=== PATIENT | male | born 1970 | race Caucasian/White ===

== ENCOUNTER 2020-04-10 11:27 | Emergency (ER) | payer BC, OTHER ==
[~2020-04-10] VITALS: Ht 182 cm; Wt 86.0 kg
[~2020-04-10 11:27] MED LIST: HYDR1TAB PO; ONDA-42 PO; TMSL.4C PO
[2020-04-10] MEDS ORDERED: KETOROLAC 30 MG/ML VIAL ONE (11:39)
[2020-04-10] MEDS ORDERED: LACTATED RINGERS 1,000 ML IV ONE (11:39)
[2020-04-10 11:48] LABS: BASOPHILS % (AUTO) 0 % (0-10); EOSINOPHILS # (AUTO) 0.1 10^3/uL (0.0-0.3); EOSINOPHILS % (AUTO) 1 % (0-10); HEMATOCRIT 43 % (40-54); HEMOGLOBIN 14.6 G/DL (13.3-17.7); LYMPHOCYTES # (AUTO) 1.9 X 10^3 (1.0-4.0); LYMPHOCYTES % (AUTO) 16 % (12-44); MEAN CORPUSCULAR HEMOGLOBIN 31 PG (25-34); MEAN CORPUSCULAR HGB CONC 34 G/DL (32-36); MEAN CORPUSCULAR VOLUME 90 FL (80-99); MEAN PLATELET VOLUME 10.7 FL (7.4-10.4); MONOCYTES # (AUTO) 0.7 X 10^3 (0.0-1.0); MONOCYTES % (AUTO) 6 % (0-12); NEUTROPHILS # (AUTO) 9.5 X 10^3 (1.8-7.8); NEUTROPHILS % (AUTO) 78 % (42-75); PLATELET COUNT 244 10^3/uL (130-400); RED CELL DISTRIBUTION WIDTH 13.1 % (10.0-14.5); WHITE BLOOD COUNT 12.2 10^3/uL (4.3-11.0)
--- NOTE | 2020-04-10 11:51 | ED Back Pain ---
General Stated Complaint: LOWER BACK PAIN Source of Information: Patient Exam Limitations: No Limitations History of Present Illness Date Seen by Provider: Apr 10, 2020 Time Seen by Provider: 11:47 Initial Comments To ER with sudden onset left low back pain that began yesterday. History of kidney stones several years ago and this feels similar. Location: Lumbar Spine Timing/Duration: 1-2 Days Severity: Moderate Pain/Injury Location: Back Associated Symptoms: lower back pain Allergies and Home Medications Allergies Coded Allergies: No Known Drug Allergies (Unverified , 06/04/11) Home Medications Amoxicillin/Potassium Clav 1 Each Tablet, 1 EACH PO BID Prescribed by: FARNAZ ROONEY on 04/10/20 1208 Hydrocodone Bit/Acetaminophen 1 Each Tablet, 1-2 EACH PO Q4H PRN Prescribed by: PAULIE KRAMER on 06/04/11437 Hydrocodone/Acetaminophen 1 Each Tablet, 1 EACH PO Q4-6HR PRN for PAIN-MODERATE Prescribed by: FARNAZ ROONEY on 04/10/20 1209 Ondansetron 8 Mg Tab.rapdis, 8 MG PO Q6H PRN for NAUSEA/VOMITING Prescribed by: FARNAZ ROONEY on 04/10/20 120 Ondansetron Hcl 4 Mg Tab, 4 MG PO Q4H PRN Prescribed by: PAULIE KRAMER on 06/04/11437 Tamsulosin Hcl 0.4 Mg Cap, 0.4 MG PO DAILY Prescribed by: PAULIE KRAMER on 06/04/11437 Patient Home Medication List Home Medication List Reviewed: Yes Review of Systems Constitutional: see HPI; No chills, No fever EENTM: see HPI Respiratory: no symptoms reported Cardiovascular: no symptoms reported Genitourinary: no symptoms reported Musculoskeletal: see HPI, back pain Skin: no symptoms reported Past Fkjpxbk-Cwqwwt-Tcfuiv Hx Patient Social History Recent Foreign Travel: No Contact w/Someone Who Travel: No Physical Exam Vital Signs Vital Signs - First Documented 04/10/20 11:35 Temp 37.0 Pulse 95 Resp 18 B/P (MAP) 145/89 (107) Pulse Ox 97 Capillary Refill : Height, Weight, BMI Height: '" Weight: lbs. oz. kg; BMI Method: General Appearance: No Apparent Distress, WD/WN, Other (rates pain 5 out of 10) Neck: Full Range of Motion, Normal Inspection Respiratory: No Accessory Muscle Use, No Respiratory Distress Gastrointestinal: Normal Bowel Sounds, Non Tender, Soft Extremity: Normal Capillary Refill, Normal Inspection Neurologic/Psychiatric: Alert, Oriented x3 Skin: Normal Color, Warm/Dry Progress/Results/Core Measures Results/Orders Lab Results Laboratory Tests Test 04/10/20 11:37 Range/Units White Blood Count 12.2 H 4.3-11.0 10^3/uL Red Blood Count 4.78 4.35-5.85 10^6/uL Hemoglobin 14.6 13.3-17.7 G/DL Hematocrit 43 40-54 % Mean Corpuscular Volume 90 80-99 FL Mean Corpuscular Hemoglobin 31 25-34 PG Mean Corpuscular Hemoglobin Concent 34 32-36 G/DL Red Cell Distribution Width 13.1 10.0-14.5 % Platelet Count 244 130-400 10^3/uL Mean Platelet Volume 10.7 H 7.4-10.4 FL Neutrophils (%) (Auto) 78 H 42-75 % Lymphocytes (%) (Auto) 16 12-44 % Monocytes (%) (Auto) 6 0-12 % Eosinophils (%) (Auto) 1 0-10 % Basophils (%) (Auto) 0 0-10 % Neutrophils # (Auto) 9.5 H 1.8-7.8 X 10^3 Lymphocytes # (Auto) 1.9 1.0-4.0 X 10^3 Monocytes # (Auto) 0.7 0.0-1.0 X 10^3 Eosinophils # (Auto) 0.1 0.0-0.3 10^3/uL Basophils # (Auto) 0.0 0.0-0.1 10^3/uL Sodium Level 139 135-145 MMOL/L Potassium Level 4.3 3.6-5.0 MMOL/L Chloride Level 110 H 98-107 MMOL/L Carbon Dioxide Level 18 L 21-32 MMOL/L Anion Gap 11 5-14 MMOL/L Blood Urea Nitrogen 11 7-18 MG/DL Creatinine 1.05 0.60-1.30 MG/DL Estimat Glomerular Filtration Rate > 60 BUN/Creatinine Ratio 10 Glucose Level 141 H 70-105 MG/DL Calcium Level 9.2 8.5-10.1 MG/DL Corrected Calcium 9.0 8.5-10.1 MG/DL Total Bilirubin 0.4 0.1-1.0 MG/DL Aspartate Amino Transf (AST/SGOT) 22 5-34 U/L Alanine Aminotransferase (ALT/SGPT) 23 0-55 U/L Alkaline Phosphatase 70 40-136 U/L Total Protein 7.8 6.4-8.2 GM/DL Albumin 4.3 3.2-4.5 GM/DL My Orders Orders - FARNAZ ROONEY APRN Cbc With Automated Diff (04/10/20 11:42) Comprehensive Metabolic Panel (04/10/20 11:42) Ct Abd/Pelvis Wo(Kidney Stone) (04/10/20 11:42) Abdomen/Kub 1view (04/10/20 11:42) Ed Iv/Invasive Line Start (04/10/20 11:42) Ua Culture If Indicated (04/10/20 11:42) Ketorolac Injection (Toradol Injection) (04/10/20 11:39) Lactated Ringers (Lr 1000 Ml Iv Solution (04/10/20 11:39) Medications Given in ED Current Medications Medications Dose Ordered Sig/Scarlet Route Start Time Stop Time Status Last Admin Dose Admin Ketorolac Tromethamine 30 mg STK-MED ONCE .ROUTE 04/10/20 11:39 04/10/20 11:43 DC 04/10/20 11:40 30 MG Lactated Ringer's 1,000 ml @ ud STK-MED ONCE IV 04/10/20 11:39 04/10/20 11:43 DC 04/10/20 11:40 1,000 MLS/HR Vital Signs/I&O 04/10/20 11:35 Temp 37.0 Pulse 95 Resp 18 B/P (MAP) 145/89 (107) Pulse Ox 97 Departure Communication (Admissions) MIKI: JANE BAJWA MED REC#: [id number] PT STATUS: REG ER : 1970 PHYSICIAN: FARNAZ ROONEY APRN ADMIT DATE: 04/10/20/ER Draft Date of Exam:04/10/20 CT ABD/PELVIS WO(KIDNEY STONE) PROCEDURE: CT urinary tract, rule out kidney stone. TECHNIQUE: Multiple contiguous axial images were obtained through the abdomen and pelvis without the use of intravenous contrast. Auto Exposure Controls were utilized during the CT exam to meet ALARA standards for radiation dose reduction. INDICATION: Left flank pain. COMPARISON: 06/04/2011 FINDINGS: Included portions lung bases are clear. CT ABDOMEN: There is colonic diverticulosis. Note is also made of focal stranding of the pericolonic fat surrounding a diverticulum of the proximal descending colon (image 48, series 2). There is perhaps trace free fluid within the upper left colic gutter as well. There is no loculated air-fluid collection, pneumatosis, pneumoperitoneum, nor portal venous gas. Proximal large and small bowel loops are nondistended. Normal appendix is identified. Punctate nonobstructive bilateral renal calculi are noted. No calculi are seen within either ureter. Additionally, there is no hydronephrosis or other evidence of obstruction. Adrenal glands, spleen, pancreas, and liver have an unremarkable noncontrast CT appearance. There is no abnormal mesenteric or retroperitoneal adenopathy. Osseous structures show no acute abnormalities CT PELVIS: Urinary bladder is opacified. No calculi are seen within urinary bladder. There is no loculated fluid collection, free fluid, no free air within the pelvis. No abnormal lymph nodes are seen. Osseous structures show no acute abnormalities IMPRESSION: 1. Colonic diverticulosis with probable acute diverticulitis of the proximal descending colon. 2. Trace free fluid within the upper left paracolic gutter, but no evidence of abscess or free air. 3. Bilateral punctate nonobstructive renal calculi. Dictated on workstation # [id number] Dict: 04/10/20 1210 Trans: 04/10/20 1220 [facility] [id number] Interpreted by: HEATHER BRENNAN MD Electronically signed by: Impression Primary Impression: Diverticulitis Disposition: 01 HOME, SELF-CARE Condition: Improved Departure-Patient Inst. Decision time for Depature: 11:58 Referrals: NO,LOCAL PHYSICIAN (PCP/Family) Primary Care Physician Patient Instructions: Diverticulitis (DC) Add. Discharge Instructions: 1. Clear liquids for the next 24 hours. Antibiotics and pain medication as directed. Return to ER for any uncontrollable nausea vomiting fevers or worsening pain. Scripts Hydrocodone/Acetaminophen (Lorcet 5-325 mg Tablet) 1 Each Tablet 1 EACH PO Q4-6HR PRN for PAIN-MODERATE MDD 10 for 7 Days, #10 TAB Prov: FARNAZ ROONEY [employer] 04/10/20 Ondansetron (Ondansetron Odt) 8 Mg Tab.rapdis 8 MG PO Q6H PRN for NAUSEA/VOMITING, #10 TAB Prov: FARNAZ ROONEY APRN 04/10/20 Amoxicillin/Potassium Clav (Augmentin 875-125 Tablet) 1 Each Tablet 1 EACH PO BID, #14 TAB 0 Refills Prov: FARNAZ ROONEY APRN 04/10/20 FARNAZ ROONEY APRN Apr 10, 2020 11:51
[2020-04-10 12:00] LABS: ALBUMIN 4.3 GM/DL (3.2-4.5)
[2020-04-10 12:01] LABS: CHLORIDE 110 MMOL/L (98-107); POTASSIUM 4.3 MMOL/L (3.6-5.0); SODIUM 139 MMOL/L (135-145)
[2020-04-10 12:02] LABS: CALCIUM 9.2 MG/DL (8.5-10.1)
[2020-04-10 12:03] LABS: GLUCOSE 141 MG/DL (70-105); TOTAL PROTEIN 7.8 GM/DL (6.4-8.2)
[2020-04-10 12:04] LABS: CARBON DIOXIDE 18 MMOL/L (21-32)
[2020-04-10 12:05] LABS: BILIRUBIN,TOTAL 0.4 MG/DL (0.1-1.0)
[2020-04-10 12:06] LABS: ALKALINE PHOSPHATASE 70 U/L (40-136)
[2020-04-10 12:07] LABS: CREATININE SERUM 1.05 MG/DL (0.60-1.30); GFR ESTIMATED > 60
[2020-04-10 12:08] LABS: BUN/CREATININE RATIO 10
[2020-04-10] MEDS ORDERED: AMOX-358 PO (12:08)
[2020-04-10] MEDS ORDERED: ONDA8TAB13 PO (12:08)
[2020-04-10] MEDS ORDERED: HYDR-3870 PO (12:08)
[2020-04-10 12:09] LABS: ALANINE AMINOTRANSFERASE 23 U/L (0-55)
--- NOTE | 2020-04-10 12:20 | Diagnostic Imaging Report ---
PROCEDURE: CT urinary tract, rule out kidney stone. TECHNIQUE: Multiple contiguous axial images were obtained through the abdomen and pelvis without the use of intravenous contrast. Auto Exposure Controls were utilized during the CT exam to meet ALARA standards for radiation dose reduction. INDICATION: Left flank pain. COMPARISON: 06/04/2011 FINDINGS: Included portions lung bases are clear. CT ABDOMEN: There is colonic diverticulosis. Note is also made of focal stranding of the pericolonic fat surrounding a diverticulum of the proximal descending colon (image 48, series 2). There is perhaps trace free fluid within the upper left colic gutter as well. There is no loculated air-fluid collection, pneumatosis, pneumoperitoneum, nor portal venous gas. Proximal large and small bowel loops are nondistended. Normal appendix is identified. Punctate nonobstructive bilateral renal calculi are noted. No calculi are seen within either ureter. Additionally, there is no hydronephrosis or other evidence of obstruction. Adrenal glands, spleen, pancreas, and liver have an unremarkable noncontrast CT appearance. There is no abnormal mesenteric or retroperitoneal adenopathy. Osseous structures show no acute abnormalities CT PELVIS: Urinary bladder is opacified. No calculi are seen within urinary bladder. There is no loculated fluid collection, free fluid, no free air within the pelvis. No abnormal lymph nodes are seen. Osseous structures show no acute abnormalities IMPRESSION: 1. Colonic diverticulosis with probable acute diverticulitis of the proximal descending colon. 2. Trace free fluid within the upper left paracolic gutter, but no evidence of abscess or free air. 3. Bilateral punctate nonobstructive renal calculi. Dictated by: Dictated on workstation # [id number]
--- NOTE | 2020-04-10 12:28 | Diagnostic Imaging Report ---
CLINICAL INDICATION: Patient complains of left flank pain, states pain 5-10 and has history of kidney stones. Symptoms started last night with sudden onset. EXAM: X-ray of the abdomen, supine views. COMPARISON: CT scan of the abdomen and pelvis without contrast dated 04/10/2020 at 1151 hours. FINDINGS AND IMPRESSION: 1: There is a phlebolith in the right pelvis region. The previously described nonobstructive nephrolithiasis on the comparison CT scan is not visualized on this exam, likely due to their small size. 2: There is no intestinal obstruction or abdominal free air. 3: There are small spurs involving the lumbar spine. Dictated by: Dictated on workstation # [id number]
[2020-04-10] MEDS ORDERED: cefTRIAXone FOR IV USE 1,000 MG in WATER (STERILE) FOR INJECTION 10 ML IV ONE (12:30)
[2020-04-10 12:40] VITALS: BP 145/89
--- OUTSIDE RECORDS SUMMARY | 2020-04-10 14:15 | XMS REPORT | Continuity of Care Document ---
Author Organization Unknown Address Unknown Phone Unavailable Allergies There is no data. Medications There is no data. Problems There is no data. Procedures There is no data. Results Test Result Range Complete blood count (CBC) with automate d white blood cell (WBC) differential - 04/10/20 11:37 Blood leukocytes automated count (number/volume) 12.2 10*3/uL 4.3-11.0 Blood erythrocytes automated count (number/volume) 4.78 10*6/uL 4.35-5.85 Venous blood hemoglobin measurement (mass/volume) 14.6 g/dL 13.3-17.7 Blood hematocrit (volume fraction) 43 % 40-54 Automated erythrocyte mean corpuscular volume 90 [ foz_us] 80-99 Automated erythrocyte mean corpuscular h emoglobin (mass per erythrocyte) 31 pg 25-34 Automated erythrocyte mean corpuscular h emoglobin concentration measurement (mass/volume) 34 g/dL 32-36 Automated erythrocyte distribution width ratio 13. 1 % 10.0- 14.5 Automated blood platelet count (count/volume) 244 10*3/uL 130-400 Automated blood platelet mean volume measurement 10.7 [foz_us] 7.4-10.4 Automated blood neutrophils/100 leukocytes 78 % 42-75 Automated blood lymphocytes/100 leukocytes 16 % 12-44 Blood monocytes/100 leukocytes 6 % 0-12 Automated blood eosinophils/100 leukocytes 1 % 0-10 Automated blood basophils/100 leukocytes 0 % 0-10 Blood neutrophils automated count (number/volume) 9.5 10*3 1.8-7.8 Blood lymphocytes automated count (number/volume) 1.9 10*3 1.0-4.0 Blood monocytes automated count (number/volume) 0. 7 10*3 0.0-1.0 Automated eosinophil count 0.1 10*3/uL 0 .0-0.3 Automated blood basophil count (count/volume) 0.0 10*3/uL 0.0-0.1 Comprehensive metabolic panel - 04/10/20 11:37 Serum or plasma sodium measurement (moles/volume) 139 mmol/L 135-145 Serum or plasma potassium measurement (moles/volume) 4.3 mmol/L 3.6-5.0 Serum or plasma chloride measurement (moles/volume) 110 mmol/L 98-107 Carbon dioxide 18 mmol/L 21-32 Serum or plasma anion gap determination (moles/volume) 11 mmol/L 5-14 Serum or plasma urea nitrogen measurement (mass/volume ) 11 mg/dL 7-18 Serum or plasma creatinine measurement (mass/volume) 1.05 mg/dL 0.60-1.30 Serum or plasma urea nitrogen/creatinine mass ratio 10 NRG Serum or plasma creatinine measurement w ith calculation of estimated glomerular filtration rate > NRG Serum or plasma glucose measurement (mass/volume) 141 mg/dL 70-105 Serum or plasma calcium measurement (mass/volume) 9.2 mg/dL 8.5-10.1 Serum or plasma total bilirubin measurement (mass/volu me) 0.4 mg/dL 0.1-1.0 Serum or plasma alkaline phosphatase drew surement (enzymatic activity/volume) 70 U/L 40-136 Serum or plasma aspartate aminotransfera se measurement (enzymatic activity/volume) 22 U/L 5-34 Serum or plasma alanine aminotransferase measurement (enzymatic activity/volume) 23 U/L 0-55 Serum or plasma protein measurement (mass/volume) 7.8 g/dL 6.4-8.2 Serum or plasma albumin measurement (mass/volume) 4.3 g/dL 3.2-4.5 CALCIUM CORRECTED 9.0 mg/dL 8.5-10.1 Encounters ACCT No. Visit Date/Time Discharge Status Pt. Type Provider Facility Loc./Unit Complaint [id number] 11/01/2013 11:35:00 014 23:59:59 CLS Outpatient [id number] 05/29/2013 11:05:00 013 23:59:59 CLS Outpatient [id number] 04/10/2020 11:51:00 Document Registration
== END 2020-04-10 12:40 | disposition home or self-care (01) ==
LOC: EDUNIT# 11:27 → ER 11:29
DX: K57.32 Diverticulitis of large intestine without perforation or abscess without bleeding (principal)
CPT/HCPCS: 36415; 74018; 74176; 80053; 85025